=== PATIENT | male | born 1960 | race Caucasian/White ===

== ENCOUNTER → 2016-12-17 | Outpatient (CLI) | payer BC ==
[2016-12-17 10:26] LABS: INR 2.02
== END ==
LOC: M LAB 09:39
PROVIDERS: ATTEND Physician Assistant
DX: I48.2 Chronic atrial fibrillation (principal)

== ENCOUNTER → 2016-12-17 | Outpatient (CLI) | payer BC ==
[2016-12-17 10:43] LABS: ALBUMIN 3.9 GM/DL (3.2-5.2); ALBUMIN/GLOBULIN RATIO 1.15 (1.00-1.93); ALKALINE PHOSPHATASE 97 U/L (45-117); ALT/SGPT 43 U/L (12-78); ANION GAP 9 MEQ/L (8-16); AST/SGOT 22 U/L (15-37); BILIRUBIN,TOTAL 0.8 MG/DL (0.2-1.0); BLOOD UREA NITROGEN 12 MG/DL (7-18); CALCIUM LEVEL 9.7 MG/DL (8.5-10.1); CARBON DIOXIDE LEVEL 27 MEQ/L (21-32); CHLORIDE LEVEL 106 MEQ/L (98-107); CHOLESTEROL LEVEL 116 MG/DL (<200); CREATININE FOR GFR 1.22 MG/DL (0.70-1.30); GLOMERULAR FILTRATION RATE > 60.0 (>56); GLUCOSE, FASTING 108 MG/DL (70-105); MAGNESIUM LEVEL 1.9 MG/DL (1.8-2.4); POTASSIUM SERUM 4.3 MEQ/L (3.5-5.1); SODIUM LEVEL 142 MEQ/L (136-145); TOTAL PROTEIN 7.3 GM/DL (6.4-8.2); TRIGLYCERIDES LEVEL 183 MG/DL (<150); URIC ACID 5.6 MG/DL (3.5-7.2)
== END ==
LOC: M LAB 09:36
PROVIDERS: ATTEND Emergency Medicine
DX: M10.9 Gout, unspecified (principal)

== ENCOUNTER → 2017-02-13 | Outpatient (CLI) | payer BC ==
[2017-02-13 10:24] LABS: MEAN CORPUSCULAR HEMOGLOBIN 29.1 pg (27.0-33.0); MEAN CORPUSCULAR VOLUME 85.8 fl (80.0-96.0); RED CELL DISTRIBUTION WIDTH 13.1 % (11.5-14.5); WHITE BLOOD COUNT 7.1 K/mm3 (4.0-10.0)
[2017-02-13 10:26] LABS: INR 1.31
[2017-02-13 10:37] LABS: ALBUMIN 3.6 GM/DL (3.2-5.2); ALBUMIN/GLOBULIN RATIO 1.09 (1.00-1.93); ALKALINE PHOSPHATASE 108 U/L (45-117); ALT/SGPT 57 U/L (12-78); ANION GAP 7 MEQ/L (8-16); AST/SGOT 31 U/L (15-37); BILIRUBIN,TOTAL 1.4 MG/DL (0.2-1.0); BLOOD UREA NITROGEN 15 MG/DL (7-18); CALCIUM LEVEL 8.7 MG/DL (8.5-10.1); CARBON DIOXIDE LEVEL 26 MEQ/L (21-32); CHLORIDE LEVEL 106 MEQ/L (98-107); CHOLESTEROL LEVEL 88 MG/DL (<200); CREATININE FOR GFR 0.96 MG/DL (0.70-1.30); GLOMERULAR FILTRATION RATE > 60.0 (>56); GLUCOSE, FASTING 114 MG/DL (70-105); MAGNESIUM LEVEL 1.9 MG/DL (1.8-2.4); POTASSIUM SERUM 4.4 MEQ/L (3.5-5.1); SODIUM LEVEL 139 MEQ/L (136-145); TOTAL PROTEIN 6.9 GM/DL (6.4-8.2); TRIGLYCERIDES LEVEL 133 MG/DL (<150)
--- NOTE | 2017-02-13 16:23 | REP ---
Chest two views HISTORY: Shortness of breath Comparison: 03/01/2015 The lungs are clear. The heart is normal in size. The pulmonary vasculature is normal in appearance. The bony structure is intact. IMPRESSION: No acute disease. Signed by Jai Atkins MD 02/13/2017 04:15 P
== END ==
LOC: M LAB 09:45
PROVIDERS: ATTEND Physician Assistant
DX: I48.2 Chronic atrial fibrillation (principal); E78.2 Mixed hyperlipidemia; R06.02 Shortness of breath

== ENCOUNTER → 2017-03-06 | Outpatient (CLI) | payer BC ==
[2017-03-06 18:02] LABS: INR 2.76
== END ==
LOC: M LAB 15:57
PROVIDERS: ATTEND Physician Assistant
DX: I48.2 Chronic atrial fibrillation (principal)

== ENCOUNTER → 2017-04-29 | Outpatient (CLI) | payer BC ==
[2017-04-29 14:56] LABS: INR 2.59
== END ==
LOC: M LAB 13:46
PROVIDERS: ATTEND Nurse Practitioner Family
DX: I48.2 Chronic atrial fibrillation (principal)

== ENCOUNTER → 2017-06-21 | Outpatient (CLI) | payer BC ==
[2017-06-21 22:25] LABS: INR 3.42
== END ==
LOC: M LAB 21:29
PROVIDERS: ATTEND Nurse Practitioner Family
DX: I48.2 Chronic atrial fibrillation (principal)

== ENCOUNTER → 2017-08-13 | Outpatient (CLI) | payer BC ==
[2017-08-13 18:43] LABS: INR 3.24
== END ==
LOC: M LAB 17:44
PROVIDERS: ATTEND Nurse Practitioner Family
DX: I48.2 Chronic atrial fibrillation (principal)

== ENCOUNTER → 2017-09-30 | Outpatient (CLI) | payer BC ==
[2017-09-30 17:34] LABS: INR 2.65
== END ==
LOC: M LAB 16:44
PROVIDERS: ATTEND Nurse Practitioner Family
DX: I48.2 Chronic atrial fibrillation (principal)

== ENCOUNTER → 2017-11-11 | Outpatient (CLI) | payer BC | LOC: M WUC 13:19 | DX: M54.5 Low back pain (principal); M51.37 Other intervertebral disc degeneration, lumbosacral region | CPT/HCPCS: 72110 ==

== ENCOUNTER → 2017-11-11 | Outpatient (REF) | payer BC ==
[2017-11-11 13:57] LABS: APPEARANCE, URINE CLEAR (CLEAR); BACTERIA, URINE AUTO NEGATIVE (NEGATIVE); BILIRUBIN, URINE AUTO NEGATIVE (NEGATIVE); BLOOD, URINE BLOOD NEGATIVE (NEGATIVE); COLOR, URINE COLORLESS (YELLOW); GLUCOSE, URINE (UA) AUTO NEGATIVE (NEGATIVE); KETONE, URINE AUTO NEGATIVE (NEGATIVE); LEUKOCYTE ESTERASE, URINE AUTO NEGATIVE (NEGATIVE); NITRITE, URINE AUTO NEGATIVE (NEGATIVE); PROTEIN, URINE AUTO NEGATIVE (NEGATIVE); RBC, URINE AUTO 0 /HPF (0-3); SPECIFIC GRAVITY URINE AUTO 1.005 (1.002-1.035); SQUAMOUS EPITHELIAL CELL UR AU 0 /HPF (0-6); UROBILINOGEN, URINE AUTO 0.2 mg/dL (0.0-2.0); WBC, URINE AUTO 0 /HPF (0-3)
== END ==
LOC: M SMT 13:13
DX: R35.0 Frequency of micturition (principal)
CPT/HCPCS: 81001

== ENCOUNTER → 2018-01-27 | Outpatient (CLI) | payer BC ==
[2018-01-27 19:19] LABS: INR 2.73; PROTHROMBIN TIME 30.1 SECONDS (12.4-14.5)
== END ==
LOC: M LAB 18:04
DX: I48.2 Chronic atrial fibrillation (principal)
CPT/HCPCS: 36415

== ENCOUNTER 2018-02-20 18:14 | Observation (INO) | payer BC ==
[2018-02-20] MEDS: ONDANSETRON 4MG/2ML VIAL (J2405) IV ×2 (19:00)
[2018-02-20] MEDS: NS 1,000 ML IV ×2 (19:09)
[2018-02-20] MEDS: MORPHINE 2 MG/ML 1ML SYRINGE (J2270) IV ×2 (19:09)
[2018-02-20 19:10] LABS: BASO # 0.1 10^3/uL (0.0-0.2); BASO % 0.7 % (0.0-1.0); EOS # 0.2 10^3/uL (0.0-0.50); EOS % 2.2 % (0.0-3.0); HEMATOCRIT 48.3 % (42.0-52.0); HEMOGLOBIN 16.1 g/dl (13.5-17.5); IMMATURE GRANULOCYTE % 0.9 % (0-3.0); LYMPH # 3.7 10^3/uL (1.5-4.5); LYMPH % 37.8 % (24.0-44.0); MEAN CORPUSCULAR HEMOGLOBIN 28.6 pg (27.0-33.0); MEAN CORPUSCULAR HGB CONC 33.3 g/dl (32.0-36.5); MEAN CORPUSCULAR VOLUME 85.8 fl (80.0-96.0); MONO # 0.9 10^3/uL (0.0-0.8); NEUTROPHILS # 4.8 10^3/uL (1.8-7.7); NEUTROPHILS % 49.4 % (36.0-66.0); PLATELET COUNT, AUTOMATED 211 10^3/uL (150-450); RED BLOOD COUNT 5.63 10^6/uL (4.30-6.10); RED CELL DISTRIBUTION WIDTH 13.5 % (11.5-14.5); WHITE BLOOD COUNT 9.7 10^3/uL (4.0-10.0)
[2018-02-20] MEDS ORDERED: NITROGLYCERIN 0.4 MG SUBL TABLET As Ordered ×2 (19:27)
[2018-02-20 19:32] LABS: ALBUMIN 3.8 GM/DL (3.2-5.2); ALBUMIN/GLOBULIN RATIO 1.03 (1.00-1.93); ALT/SGPT 71 U/L (12-78); ANION GAP 8 MEQ/L (8-16); AST/SGOT 49 U/L (7-37); BILIRUBIN,DIRECT 0.4 MG/DL (0.0-0.2); BILIRUBIN,TOTAL 1.3 MG/DL (0.2-1.0); BLOOD UREA NITROGEN 15 MG/DL (7-18); CALCIUM LEVEL 8.8 MG/DL (8.5-10.1); CARBON DIOXIDE LEVEL 26 MEQ/L (21-32); CHLORIDE LEVEL 105 MEQ/L (98-107); CPK CREATINE PHOSPHOKINASE 47 U/L (39-308); CREATININE FOR GFR 1.04 MG/DL (0.70-1.30); FREE T4 1.23 NG/DL (0.76-1.46); GLOMERULAR FILTRATION RATE > 60.0 (>56); GLUCOSE, FASTING 101 MG/DL (70-100); LIPASE 138 U/L (73-393); POTASSIUM SERUM 3.9 MEQ/L (3.5-5.1); SODIUM LEVEL 139 MEQ/L (136-145); TOTAL PROTEIN 7.5 GM/DL (6.4-8.2); TROPONIN I < 0.02 NG/ML (< 0.10)
[2018-02-20 19:38] LABS: ALKALINE PHOSPHATASE 99 U/L (45-117); CK-MB VALUE MASS < 1.0 NG/ML (<3.6); MB/CK RELATIVE INDEX 2.12 (< OR =4)
[2018-02-20] MEDS: NITROGLYCERIN 0.4 MG SUBL TABLET SL ×2 (19:39)
[2018-02-20 19:44] LABS: INR 2.54; PROTHROMBIN TIME 28.3 SECONDS (12.4-14.5)
[2018-02-20 19:45] LABS: PARTIAL THROMBOPLASTIN TIME 56.1 SECONDS (26.8-37.9)
[2018-02-20] MEDS ORDERED: ISOVUE-370 76% 100ML VIAL (Q9967) As Ordered ×2 (19:50)
[2018-02-20 20:07] LABS: D-DIMER QUANT < 270.0 ng/ml (<500)
[2018-02-20] MEDS: NITROGLYCERIN 2% OINT 1 GM *U/D* PKT TOP ×2 (20:14)
[2018-02-20] MEDS: ACETAMINOPHEN TAB 650MG DOSE (2X325MG) PO ×2 (20:14)
[2018-02-21 00:26] LABS: CK-MB VALUE MASS < 1.0 NG/ML (<3.6); CPK CREATINE PHOSPHOKINASE 41 U/L (39-308); MB/CK RELATIVE INDEX 2.43 (< OR =4); TROPONIN I < 0.02 NG/ML (< 0.10)
[2018-02-21] MEDS ORDERED: ACETAMINOPHEN TAB 650MG DOSE (2X325MG) PO ×2 (02:15)
[2018-02-21] MEDS: ATORVASTATIN 10 MG TAB PO ×4 (03:22→20:55)
[2018-02-21] MEDS: ALLOPURINOL 100 MG TAB PO ×4 (03:22→20:55)
[2018-02-21 07:15] LABS: BASO % 0.5 % (0.0-1.0); EOS # 0.2 10^3/uL (0.0-0.50); EOS % 1.9 % (0.0-3.0); HEMATOCRIT 45.2 % (42.0-52.0); HEMOGLOBIN 15.2 g/dl (13.5-17.5); IMMATURE GRANULOCYTE % 0.8 % (0-3.0); LYMPH # 2.7 10^3/uL (1.5-4.5); LYMPH % 34.7 % (24.0-44.0); MEAN CORPUSCULAR HEMOGLOBIN 28.8 pg (27.0-33.0); MEAN CORPUSCULAR HGB CONC 33.6 g/dl (32.0-36.5); MEAN CORPUSCULAR VOLUME 85.8 fl (80.0-96.0); MONO # 0.7 10^3/uL (0.0-0.8); MONO % 8.8 % (0.0-5.0); NEUTROPHILS # 4.2 10^3/uL (1.8-7.7); NEUTROPHILS % 53.3 % (36.0-66.0); PLATELET COUNT, AUTOMATED 168 10^3/uL (150-450); RED BLOOD COUNT 5.27 10^6/uL (4.30-6.10); RED CELL DISTRIBUTION WIDTH 13.5 % (11.5-14.5); WHITE BLOOD COUNT 7.8 10^3/uL (4.0-10.0)
[2018-02-21 07:25] LABS: ANION GAP 6 MEQ/L (8-16); BLOOD UREA NITROGEN 13 MG/DL (7-18); CALCIUM LEVEL 8.5 MG/DL (8.5-10.1); CARBON DIOXIDE LEVEL 26 MEQ/L (21-32); CHLORIDE LEVEL 108 MEQ/L (98-107); CREATININE FOR GFR 0.95 MG/DL (0.70-1.30); GLOMERULAR FILTRATION RATE > 60.0 (>56); GLUCOSE, FASTING 108 MG/DL (70-100); POTASSIUM SERUM 4.1 MEQ/L (3.5-5.1); SODIUM LEVEL 140 MEQ/L (136-145)
[2018-02-21 07:29] LABS: TROPONIN I < 0.02 NG/ML (< 0.10)
[2018-02-21 07:30] LABS: INR 2.62; PROTHROMBIN TIME 29.1 SECONDS (12.4-14.5)
[2018-02-21] MEDS: NITROGLYCERIN 0.4 MG SUBL TABLET SL ×2 (08:22)
[2018-02-21] MEDS: PANTOPRAZOLE 40MG INJ (PROTONIX) (C9113) IV ×2 (08:24)
[2018-02-21] MEDS: ONDANSETRON 4MG/2ML VIAL (J2405) IV ×2 (08:24)
[2018-02-21] MEDS: WARFARIN SOD 5 MG TAB PO ×2 (08:25)
[2018-02-21] MEDS: ACETAMINOPHEN 500 MG TAB PO ×2 (08:25)
[2018-02-21] MEDS: WARFARIN SOD 1 MG TAB PO ×2 (08:25)
[2018-02-21] MEDS: CYANOCOBALAMIN 500 MCG TAB PO ×2 (08:25)
[2018-02-21] MEDS: oxyBUTYnin *DITROPAN XL* 5 MG TABCR PO ×2 (08:26)
[2018-02-21] MEDS ORDERED: PANTOPRAZOLE 40MG TAB (PROTONIX) PO ×2 (09:00)
[2018-02-21] MEDS ORDERED: FUROSEMIDE 20 MG TAB PO ×2 (09:00)
[2018-02-21] MEDS ORDERED: VITAMIN D 1,000 INTERNATIONAL UNITS TABLET PO ×2 (09:00)
[2018-02-21] MEDS ORDERED: QUINAPRIL 20 MG TAB PO ×2 (09:00)
[2018-02-21 12:05] LABS: DIGOXIN LEVEL 1.2 NG/ML (0.5-2.0)
[2018-02-22] MEDS: CALCIUM CARBONATE 500 MG CHEW U/D PO ×2 (00:05)
[2018-02-22 03:39] LABS: BASO % 0.5 % (0.0-1.0); EOS # 0.2 10^3/uL (0.0-0.50); HEMATOCRIT 43.9 % (42.0-52.0); HEMOGLOBIN 14.5 g/dl (13.5-17.5); IMMATURE GRANULOCYTE % 0.9 % (0-3.0); LYMPH % 36.9 % (24.0-44.0); MEAN CORPUSCULAR HEMOGLOBIN 28.5 pg (27.0-33.0); MEAN CORPUSCULAR VOLUME 86.4 fl (80.0-96.0); MONO # 0.7 10^3/uL (0.0-0.8); MONO % 8.3 % (0.0-5.0); NEUTROPHILS # 4.2 10^3/uL (1.8-7.7); NEUTROPHILS % 51.4 % (36.0-66.0); PLATELET COUNT, AUTOMATED 176 10^3/uL (150-450); RED BLOOD COUNT 5.08 10^6/uL (4.30-6.10); RED CELL DISTRIBUTION WIDTH 13.4 % (11.5-14.5); WHITE BLOOD COUNT 8.1 10^3/uL (4.0-10.0)
[2018-02-22 03:54] LABS: INR 2.75; PROTHROMBIN TIME 30.3 SECONDS (12.4-14.5)
[2018-02-22 04:14] LABS: ANION GAP 5 MEQ/L (8-16); BLOOD UREA NITROGEN 13 MG/DL (7-18); CALCIUM LEVEL 8.5 MG/DL (8.5-10.1); CARBON DIOXIDE LEVEL 28 MEQ/L (21-32); CHLORIDE LEVEL 107 MEQ/L (98-107); CREATININE FOR GFR 0.96 MG/DL (0.70-1.30); GLOMERULAR FILTRATION RATE > 60.0 (>56); GLUCOSE, FASTING 109 MG/DL (70-100); POTASSIUM SERUM 3.9 MEQ/L (3.5-5.1); SODIUM LEVEL 140 MEQ/L (136-145)
[2018-02-22] MEDS: PANTOPRAZOLE 40MG INJ (PROTONIX) (C9113) IV ×2 (08:58)
[2018-02-22] MEDS: oxyBUTYnin *DITROPAN XL* 5 MG TABCR PO ×2 (08:59)
[2018-02-22] MEDS: WARFARIN SOD 5 MG TAB PO ×2 (08:59)
[2018-02-22] MEDS: CYANOCOBALAMIN 500 MCG TAB PO ×2 (08:59)
[2018-02-22] MEDS: WARFARIN SOD 1 MG TAB PO ×2 (08:59)
[2018-02-22] MEDS: NADOLOL 20MG TABLET PO ×4 (10:31→19:42)
[2018-02-22] MEDS: ALLOPURINOL 100 MG TAB PO ×2 (20:37)
[2018-02-22] MEDS: ATORVASTATIN 10 MG TAB PO ×2 (20:37)
[2018-02-23 05:13] LABS: BASO # 0.1 10^3/uL (0.0-0.2); BASO % 0.6 % (0.0-1.0); EOS # 0.2 10^3/uL (0.0-0.50); HEMOGLOBIN 14.8 g/dl (13.5-17.5); IMMATURE GRANULOCYTE % 0.6 % (0-3.0); LYMPH # 3.2 10^3/uL (1.5-4.5); LYMPH % 39.2 % (24.0-44.0); MEAN CORPUSCULAR HEMOGLOBIN 28.5 pg (27.0-33.0); MEAN CORPUSCULAR HGB CONC 32.9 g/dl (32.0-36.5); MEAN CORPUSCULAR VOLUME 86.5 fl (80.0-96.0); MONO # 0.7 10^3/uL (0.0-0.8); NEUTROPHILS % 48.6 % (36.0-66.0); PLATELET COUNT, AUTOMATED 173 10^3/uL (150-450); RED CELL DISTRIBUTION WIDTH 13.4 % (11.5-14.5); WHITE BLOOD COUNT 8.2 10^3/uL (4.0-10.0)
[2018-02-23 05:28] LABS: INR 2.54; PROTHROMBIN TIME 28.4 SECONDS (12.4-14.5)
[2018-02-23 05:32] LABS: ANION GAP 5 MEQ/L (8-16); BLOOD UREA NITROGEN 11 MG/DL (7-18); CALCIUM LEVEL 8.6 MG/DL (8.5-10.1); CARBON DIOXIDE LEVEL 26 MEQ/L (21-32); CHLORIDE LEVEL 109 MEQ/L (98-107); CREATININE FOR GFR 0.93 MG/DL (0.70-1.30); GLOMERULAR FILTRATION RATE > 60.0 (>56); GLUCOSE, FASTING 107 MG/DL (70-100); SODIUM LEVEL 140 MEQ/L (136-145)
[2018-02-23] MEDS: PANTOPRAZOLE 40MG INJ (PROTONIX) (C9113) IV ×2 (08:20)
[2018-02-23] MEDS: NADOLOL 20MG TABLET PO ×6 (08:21→10:22)
[2018-02-23] MEDS: CYANOCOBALAMIN 500 MCG TAB PO ×2 (08:21)
[2018-02-23] MEDS: WARFARIN SOD 1 MG TAB PO ×2 (08:21)
[2018-02-23] MEDS: WARFARIN SOD 5 MG TAB PO ×2 (08:21)
[2018-02-23] MEDS: oxyBUTYnin *DITROPAN XL* 5 MG TABCR PO ×2 (08:21)
[2018-02-23] MEDS: DIGOXIN 0.125 MG TAB PO ×2 (16:00)
[2018-02-23] MEDS: ATORVASTATIN 10 MG TAB PO ×2 (20:44)
[2018-02-23] MEDS: ALLOPURINOL 100 MG TAB PO ×2 (20:44)
[2018-02-24 05:49] LABS: BASO % 0.5 % (0.0-1.0); EOS # 0.2 10^3/uL (0.0-0.50); EOS % 2.2 % (0.0-3.0); HEMATOCRIT 45.5 % (42.0-52.0); HEMOGLOBIN 15.2 g/dl (13.5-17.5); IMMATURE GRANULOCYTE % 0.8 % (0-3.0); LYMPH # 2.8 10^3/uL (1.5-4.5); LYMPH % 32.9 % (24.0-44.0); MEAN CORPUSCULAR HEMOGLOBIN 28.7 pg (27.0-33.0); MEAN CORPUSCULAR HGB CONC 33.4 g/dl (32.0-36.5); MONO # 0.7 10^3/uL (0.0-0.8); NEUTROPHILS # 4.8 10^3/uL (1.8-7.7); NEUTROPHILS % 55.6 % (36.0-66.0); PLATELET COUNT, AUTOMATED 184 10^3/uL (150-450); RED BLOOD COUNT 5.29 10^6/uL (4.30-6.10); RED CELL DISTRIBUTION WIDTH 13.7 % (11.5-14.5); WHITE BLOOD COUNT 8.6 10^3/uL (4.0-10.0)
[2018-02-24 06:11] LABS: ANION GAP 6 MEQ/L (8-16); BLOOD UREA NITROGEN 10 MG/DL (7-18); CALCIUM LEVEL 8.6 MG/DL (8.5-10.1); CARBON DIOXIDE LEVEL 25 MEQ/L (21-32); CHLORIDE LEVEL 111 MEQ/L (98-107); CREATININE FOR GFR 0.93 MG/DL (0.70-1.30); GLOMERULAR FILTRATION RATE > 60.0 (>56); GLUCOSE, FASTING 100 MG/DL (70-100); POTASSIUM SERUM 3.8 MEQ/L (3.5-5.1); SODIUM LEVEL 142 MEQ/L (136-145)
[2018-02-24] MEDS: CYANOCOBALAMIN 500 MCG TAB PO ×2 (09:01)
[2018-02-24] MEDS: oxyBUTYnin *DITROPAN XL* 5 MG TABCR PO ×2 (09:01)
[2018-02-24] MEDS: NADOLOL 20MG TABLET PO ×2 (09:01)
[2018-02-24] MEDS: PANTOPRAZOLE 40MG INJ (PROTONIX) (C9113) IV ×2 (09:01)
[2018-02-24] MEDS: WARFARIN SOD 5 MG TAB PO ×2 (09:01)
[2018-02-24] MEDS: WARFARIN SOD 1 MG TAB PO ×2 (09:02)
[2018-02-24] MEDS: BISOPROLOL FUMARATE 10 MG TAB PO ×2 (15:27)
== END 2018-02-24 20:49 | disposition home or self-care (01) ==
LOC: M ED INP 02-21 02:07 → M PCU 02-21 05:36 → M ED 18:14 → M ED INP 18:15 → M PCU 02-21 05:36
DX: R00.1 Bradycardia, unspecified (principal); I48.2 Chronic atrial fibrillation; I50.32 Chronic diastolic (congestive) heart failure; M10.9 Gout, unspecified; K21.9 Gastro-esophageal reflux disease without esophagitis; I11.0 Hypertensive heart disease with heart failure; R42 Dizziness and giddiness; R94.31 Abnormal electrocardiogram [ECG] [EKG]; E78.5 Hyperlipidemia, unspecified; E66.9 Obesity, unspecified; I34.0 Nonrheumatic mitral (valve) insufficiency; E55.9 Vitamin D deficiency, unspecified; M50.20 Other cervical disc displacement, unspecified cervical region; M19.90 Unspecified osteoarthritis, unspecified site; Z79.899 Other long term (current) drug therapy; Z79.01 Long term (current) use of anticoagulants; Z88.1 Allergy status to other antibiotic agents; Z88.0 Allergy status to penicillin; Z88.2 Allergy status to sulfonamides; Z91.030 Bee allergy status
CPT/HCPCS: C9113

== ENCOUNTER → 2018-03-27 | Outpatient (CLI) | payer BC ==
[2018-03-27 11:21] LABS: HEMATOCRIT 47.3 % (42.0-52.0); HEMOGLOBIN 15.7 g/dl (13.5-17.5); MEAN CORPUSCULAR HEMOGLOBIN 28.6 pg (27.0-33.0); MEAN CORPUSCULAR HGB CONC 33.2 g/dl (32.0-36.5); MEAN CORPUSCULAR VOLUME 86.3 fl (80.0-96.0); PLATELET COUNT, AUTOMATED 215 10^3/uL (150-450); RED BLOOD COUNT 5.48 10^6/uL (4.30-6.10); RED CELL DISTRIBUTION WIDTH 13.8 % (11.5-14.5); WHITE BLOOD COUNT 8.3 10^3/uL (4.0-10.0)
[2018-03-27 11:37] LABS: INR 2.44; PROTHROMBIN TIME 27.5 SECONDS (12.4-14.5)
== END ==
LOC: M LAB 10:07
DX: Z51.81 Encounter for therapeutic drug level monitoring (principal); Z79.01 Long term (current) use of anticoagulants; I48.2 Chronic atrial fibrillation
CPT/HCPCS: 85610

== ENCOUNTER → 2018-04-28 | Outpatient (CLI) | payer BC ==
[2018-04-28 15:20] LABS: HEMATOCRIT 48.3 % (42.0-52.0); HEMOGLOBIN 16.2 g/dl (13.5-17.5); MEAN CORPUSCULAR HEMOGLOBIN 28.4 pg (27.0-33.0); MEAN CORPUSCULAR HGB CONC 33.5 g/dl (32.0-36.5); MEAN CORPUSCULAR VOLUME 84.7 fl (80.0-96.0); PLATELET COUNT, AUTOMATED 219 10^3/uL (150-450); RED CELL DISTRIBUTION WIDTH 13.7 % (11.5-14.5); WHITE BLOOD COUNT 8.8 10^3/uL (4.0-10.0)
[2018-04-28 15:30] LABS: INR 2.53; PROTHROMBIN TIME 27.8 SECONDS (12.1-14.4)
== END ==
LOC: M LAB 14:42
DX: I48.2 Chronic atrial fibrillation (principal)
CPT/HCPCS: 85610

== ENCOUNTER → 2018-05-28 | Outpatient (CLI) | payer BC ==
[2018-05-28 15:31] LABS: HEMATOCRIT 48.1 % (42.0-52.0); HEMOGLOBIN 15.9 g/dl (13.5-17.5); MEAN CORPUSCULAR HEMOGLOBIN 27.9 pg (27.0-33.0); MEAN CORPUSCULAR HGB CONC 33.1 g/dl (32.0-36.5); MEAN CORPUSCULAR VOLUME 84.5 fl (80.0-96.0); PLATELET COUNT, AUTOMATED 211 10^3/uL (150-450); RED BLOOD COUNT 5.69 10^6/uL (4.30-6.10); RED CELL DISTRIBUTION WIDTH 13.5 % (11.5-14.5); WHITE BLOOD COUNT 7.8 10^3/uL (4.0-10.0)
[2018-05-28 15:44] LABS: INR 2.38; PROTHROMBIN TIME 26.5 SECONDS (12.1-14.4)
== END ==
LOC: M LAB 15:11
DX: Z51.81 Encounter for therapeutic drug level monitoring (principal); Z79.01 Long term (current) use of anticoagulants; I48.2 Chronic atrial fibrillation
CPT/HCPCS: 85610

== ENCOUNTER → 2018-07-17 | Outpatient (CLI) | payer BC ==
[2018-07-17 10:02] LABS: HEMATOCRIT 48.1 % (42.0-52.0); HEMOGLOBIN 15.5 g/dl (13.5-17.5); MEAN CORPUSCULAR HEMOGLOBIN 27.9 pg (27.0-33.0); MEAN CORPUSCULAR HGB CONC 32.2 g/dl (32.0-36.5); MEAN CORPUSCULAR VOLUME 86.7 fl (80.0-96.0); PLATELET COUNT, AUTOMATED 197 10^3/uL (150-450); RED BLOOD COUNT 5.55 10^6/uL (4.30-6.10); RED CELL DISTRIBUTION WIDTH 14.2 % (11.5-14.5); WHITE BLOOD COUNT 7.8 10^3/uL (4.0-10.0)
[2018-07-17 10:14] LABS: INR 2.54; PROTHROMBIN TIME 27.9 SECONDS (12.1-14.4)
== END ==
LOC: M LAB 09:20
DX: Z79.01 Long term (current) use of anticoagulants (principal); I48.2 Chronic atrial fibrillation
CPT/HCPCS: 85610

== ENCOUNTER 2018-09-09 17:35 | Emergency (ER) | payer BC ==
[2018-09-09 19:18] LABS: KETONE, URINE AUTO RFX NEGATIVE (NEGATIVE); LEUKOCYTE ESTERASE UR AUTO RFX NEGATIVE (NEGATIVE); MUCUS, URINE RFX SMALL (NEGATIVE); NITRITE, URINE AUTO RFX NEGATIVE (NEGATIVE); RBC, URINE AUTO RFX 0 /HPF (0-3); SPECIFIC GRAVITY UR AUTO RFX 1.006 (1.002-1.035); SQUAM EPITHELIAL CELL UR AURFX 0 /HPF (0-6); WBC, URINE AUTO RFX 1 /HPF (0-3)
[2018-09-09] MEDS: NS 1,000 ML IV (20:53)
[2018-09-09] MEDS: ONDANSETRON 4MG/2ML VIAL (J2405) IV (20:53)
[2018-09-09 21:00] LABS: BASO # 0.1 10^3/uL (0.0-0.2); BASO % 0.8 % (0.0-1.0); EOS # 0.1 10^3/uL (0.0-0.50); EOS % 1.1 % (0.0-3.0); HEMATOCRIT 49.1 % (42.0-52.0); HEMOGLOBIN 16.1 g/dl (13.5-17.5); IMMATURE GRANULOCYTE % 1.9 % (0-3.0); LYMPH # 2.4 10^3/uL (1.5-4.5); LYMPH % 37.3 % (24.0-44.0); MEAN CORPUSCULAR HEMOGLOBIN 28.3 pg (27.0-33.0); MEAN CORPUSCULAR HGB CONC 32.8 g/dl (32.0-36.5); MEAN CORPUSCULAR VOLUME 86.3 fl (80.0-96.0); MONO # 1.2 10^3/uL (0.0-0.8); NEUTROPHILS # 2.6 10^3/uL (1.8-7.7); NEUTROPHILS % 39.9 % (36.0-66.0); PLATELET COUNT, AUTOMATED 195 10^3/uL (150-450); RED BLOOD COUNT 5.69 10^6/uL (4.30-6.10); RED CELL DISTRIBUTION WIDTH 14.4 % (11.5-14.5); WHITE BLOOD COUNT 6.4 10^3/uL (4.0-10.0)
[2018-09-09 21:25] LABS: ALBUMIN 3.6 GM/DL (3.2-5.2); ALBUMIN/GLOBULIN RATIO 1.06 (1.00-1.93); ALKALINE PHOSPHATASE 112 U/L (45-117); ALT/SGPT 72 U/L (12-78); ANION GAP 7 MEQ/L (8-16); AST/SGOT 54 U/L (7-37); BLOOD UREA NITROGEN 11 MG/DL (7-18); CALCIUM LEVEL 8.6 MG/DL (8.8-10.2); CARBON DIOXIDE LEVEL 27 MEQ/L (21-32); CHLORIDE LEVEL 103 MEQ/L (98-107); CREATININE FOR GFR 1.21 MG/DL (0.70-1.30); GLOMERULAR FILTRATION RATE > 60.0 (>49); GLUCOSE, FASTING 82 MG/DL (70-100); LIPASE 87 U/L (73-393); POTASSIUM SERUM 4.1 MEQ/L (3.5-5.1); SODIUM LEVEL 137 MEQ/L (136-145)
[2018-09-09] MEDS ORDERED: ISOVUE-370 76% 100ML VIAL (Q9967) As Ordered (21:47)
== END 2018-09-09 23:58 | disposition home or self-care (01) ==
LOC: M ED 17:35
DX: R10.32 Left lower quadrant pain (principal); R19.7 Diarrhea, unspecified; M54.6 Pain in thoracic spine; R51 Headache; I48.91 Unspecified atrial fibrillation; I50.9 Heart failure, unspecified; I25.2 Old myocardial infarction; E78.5 Hyperlipidemia, unspecified; K21.9 Gastro-esophageal reflux disease without esophagitis; G62.9 Polyneuropathy, unspecified; R79.89 Other specified abnormal findings of blood chemistry; Z88.0 Allergy status to penicillin; Z88.2 Allergy status to sulfonamides; Z88.1 Allergy status to other antibiotic agents; Z91.040 Latex allergy status; Z91.030 Bee allergy status; Z79.899 Other long term (current) drug therapy; Z79.01 Long term (current) use of anticoagulants
CPT/HCPCS: J2405

== ENCOUNTER → 2018-09-09 | Outpatient (CLI) | payer BC ==
[2018-09-09 17:39] LABS: HEMATOCRIT 50.6 % (42.0-52.0); HEMOGLOBIN 16.6 g/dl (13.5-17.5); MEAN CORPUSCULAR HEMOGLOBIN 28.4 pg (27.0-33.0); MEAN CORPUSCULAR HGB CONC 32.8 g/dl (32.0-36.5); MEAN CORPUSCULAR VOLUME 86.5 fl (80.0-96.0); PLATELET COUNT, AUTOMATED 207 10^3/uL (150-450); RED BLOOD COUNT 5.85 10^6/uL (4.30-6.10); RED CELL DISTRIBUTION WIDTH 14.3 % (11.5-14.5); WHITE BLOOD COUNT 7.2 10^3/uL (4.0-10.0)
[2018-09-09 18:09] LABS: INR 2.23; PROTHROMBIN TIME 25.2 SECONDS (12.1-14.4)
== END ==
LOC: M LAB 17:06
DX: I48.2 Chronic atrial fibrillation (principal)
CPT/HCPCS: 85610

== ENCOUNTER → 2018-10-22 | Outpatient (CLI) | payer BC ==
[~2018-10-22] MED LIST: ALLO100T; ALLO100T PO; ATOR1TAB19; ATOR1TAB19 PO; BISO10TA PO; COLC1TAB13; DICY1CAP8 PO; DIGO0.12; DIGO0.12 PO; FISH1000 PO; FURO20TA2; FURO20TA2 PO; GLUCTAB6 PO; NADO80TA; NADO80TA PO; OXYB5TAB; OXYB5TAB PO; PANT40TA3; PANT40TA3 PO; QUIN1TAB4; QUIN1TAB4 PO; VITA200016 PO; VITA500T3 PO; WARF-23 PO; WARF4TAB52; WARF4TAB52 PO
[2018-10-22 15:10] LABS: INR 2.39; PROTHROMBIN TIME 26.5 SECONDS (12.1-14.4)
== END ==
LOC: M LAB 14:14
PROVIDERS: ATTEND Physician Assistant
DX: I48.2 Chronic atrial fibrillation (principal)

== ENCOUNTER → 2019-01-22 | Outpatient (CLI) | payer BC ==
[2019-01-22 18:15] LABS: INR 2.3; PROTHROMBIN TIME 25.8 SECONDS (12.1-14.4)
== END ==
LOC: M LAB 17:15
PROVIDERS: ATTEND Physician Assistant
DX: I48.2 Chronic atrial fibrillation (principal)

== ENCOUNTER → 2019-03-04 | Outpatient (CLI) | payer BC ==
[~2019-03-04] MED LIST changes: -BISO10TA PO; +BISO10TA13 PO
[2019-03-04 18:54] LABS: INR 2.25; PROTHROMBIN TIME 25.3 SECONDS (12.1-14.4)
== END ==
LOC: M LAB 17:11
PROVIDERS: ATTEND Physician Assistant
DX: I48.2 Chronic atrial fibrillation (principal)

== ENCOUNTER → 2019-06-04 | Outpatient (CLI) | payer BC ==
[~2019-06-04] MED LIST changes: +CYAN500T8 PO; -OXYB5TAB; -OXYB5TAB PO; +OXYB5TAB2; +OXYB5TAB2 PO; -VITA500T3 PO
[2019-06-04 17:11] LABS: INR 2.62; PROTHROMBIN TIME 27.9 SECONDS (11.8-14.0)
[2019-06-04 17:20] LABS: ALBUMIN 3.7 GM/DL (3.2-5.2); BLOOD UREA NITROGEN 17 MG/DL (7-18); CALCIUM LEVEL 8.7 MG/DL (8.8-10.2); CARBON DIOXIDE LEVEL 26 MEQ/L (21-32); CHLORIDE LEVEL 109 MEQ/L (98-107); CREATININE FOR GFR 1.21 MG/DL (0.70-1.30); GLOMERULAR FILTRATION RATE > 60.0 (>49); GLUCOSE, FASTING 106 MG/DL (70-100); PHOSPHORUS LEVEL 2.7 MG/DL (2.5-4.9); POTASSIUM SERUM 4.1 MEQ/L (3.5-5.1); SODIUM LEVEL 142 MEQ/L (136-145)
== END ==
LOC: M LAB 15:56
PROVIDERS: ATTEND Physician Assistant
DX: I48.2 Chronic atrial fibrillation (principal); R60.0 Localized edema

== ENCOUNTER → 2019-06-30 | Outpatient (CLI) | payer BC ==
[2019-06-30 18:29] LABS: INR 1.52; PROTHROMBIN TIME 18.1 SECONDS (11.8-14.0)
== END ==
LOC: M LAB 17:36
PROVIDERS: ATTEND Physician Assistant
DX: I48.2 Chronic atrial fibrillation (principal)

== ENCOUNTER → 2019-09-14 | Outpatient (CLI) | payer BC ==
[2019-09-14 18:45] LABS: BASO # 0.1 10^3/uL (0.0-0.2); BASO % 0.7 % (0.0-1.0); EOS # 0.1 10^3/uL (0.0-0.5); EOS % 1.4 % (0.0-3.0); HEMATOCRIT 49.6 % (42.0-52.0); LYMPH # 2.6 10^3/uL (1.5-5.0); LYMPH % 28.8 % (24.0-44.0); MEAN CORPUSCULAR HGB CONC 32.3 g/dl (32.0-36.5); MEAN CORPUSCULAR VOLUME 89.9 fl (80.0-96.0); MONO # 0.7 10^3/uL (0.0-0.8); NEUTROPHILS # 5.4 10^3/uL (1.5-8.5); NEUTROPHILS % 60.2 % (36.0-66.0); PLATELET COUNT, AUTOMATED 220 10^3/uL (150-450); RED BLOOD COUNT 5.52 10^6/uL (4.30-6.10)
[2019-09-14 19:24] LABS: ALBUMIN 3.9 GM/DL (3.2-5.2); ALT/SGPT 58 U/L (12-78); BILIRUBIN,TOTAL 1.5 MG/DL (0.2-1.0); BLOOD UREA NITROGEN 12 MG/DL (7-18); CALCIUM LEVEL 9.2 MG/DL (8.8-10.2); CARBON DIOXIDE LEVEL 28 MEQ/L (21-32); CHLORIDE LEVEL 106 MEQ/L (98-107); CHOLESTEROL LEVEL 141 MG/DL (<200); CREATININE FOR GFR 0.98 MG/DL (0.70-1.30); DIGOXIN LEVEL 0.6 NG/ML (0.5-2.0); GLOMERULAR FILTRATION RATE > 60.0 (>49); GLUCOSE, FASTING 74 MG/DL (70-100); HDL CHOLESTEROL 37 MG/DL (>40); LDL CHOLESTEROL 79 MG/DL (<100); NON-HDL-C 104 MG/DL; POTASSIUM SERUM 4.1 MEQ/L (3.5-5.1); SODIUM LEVEL 140 MEQ/L (136-145); TOTAL PROTEIN 7.3 GM/DL (6.4-8.2); TRIGLYCERIDES LEVEL 125 MG/DL (<150)
== END ==
LOC: M LAB 17:55
PROVIDERS: ATTEND Family Medicine
DX: I42.0 Dilated cardiomyopathy (principal); I10 Essential (primary) hypertension; E78.2 Mixed hyperlipidemia

== ENCOUNTER → 2020-07-01 | Outpatient (CLI) | payer BC ==
[~2020-07-01] MED LIST changes: -DIGO0.12; -DIGO0.12 PO; +DIGO0.123; +DIGO0.123 PO; -NADO80TA; -NADO80TA PO; +NADO80TA5; +NADO80TA5 PO; +OXYB-54; +OXYB-54 PO; -OXYB5TAB2; -OXYB5TAB2 PO; +PANT40TA29; +PANT40TA29 PO; -PANT40TA3; -PANT40TA3 PO
[2020-07-01 18:20] LABS: ALBUMIN 3.6 GM/DL (3.2-5.2); ALT/SGPT 33 U/L (12-78); BILIRUBIN,TOTAL 0.7 MG/DL (0.2-1.0); BLOOD UREA NITROGEN 12 MG/DL (7-18); CARBON DIOXIDE LEVEL 29 MEQ/L (21-32); CHLORIDE LEVEL 105 MEQ/L (98-107); CHOLESTEROL LEVEL 139 MG/DL (<200); CHOLESTEROL RISK RATIO 4.212 (<5); CREATININE FOR GFR 1.09 MG/DL (0.70-1.30); GLOMERULAR FILTRATION RATE > 60.0 (>49); GLUCOSE, FASTING 84 MG/DL (70-100); HDL CHOLESTEROL 33 MG/DL (>40); LDL CHOLESTEROL 59 MG/DL (<100); NON-HDL-C 106 MG/DL; POTASSIUM SERUM 4.1 MEQ/L (3.5-5.1); SODIUM LEVEL 140 MEQ/L (136-145); TRIGLYCERIDES LEVEL 235 MG/DL (<150)
== END ==
LOC: M LAB 16:59
PROVIDERS: ATTEND Nurse Practitioner Family
DX: Z00.00 Encounter for general adult medical examination without abnormal findings (principal)

== ENCOUNTER → 2021-11-09 | Outpatient (CLI) | payer OTHER ==
[~2021-11-09] MED LIST changes: +COLC0.6T47; -COLC1TAB13; +CYAN500T14 PO; -CYAN500T8 PO
[2021-11-09 19:24] LABS: ALBUMIN 3.9 GM/DL (3.2-5.2); ALT/SGPT 31 U/L (12-78); BILIRUBIN,TOTAL 0.4 MG/DL (0.2-1.0); BLOOD UREA NITROGEN 16 MG/DL (7-18); CALCIUM LEVEL 9.8 MG/DL (8.8-10.2); CARBON DIOXIDE LEVEL 29 MEQ/L (21-32); CHLORIDE LEVEL 106 MEQ/L (98-107); CHOLESTEROL LEVEL 155 MG/DL (<200); CHOLESTEROL RISK RATIO 3.522 (<5); CREATININE FOR GFR 1.09 MG/DL (0.70-1.30); GLOMERULAR FILTRATION RATE > 60.0 (>49); GLUCOSE, FASTING 120 MG/DL (70-100); HDL CHOLESTEROL 44 MG/DL (>40); LDL CHOLESTEROL 84 MG/DL (<100); NON-HDL-C 111 MG/DL; POTASSIUM SERUM 4.7 MEQ/L (3.5-5.1); SODIUM LEVEL 142 MEQ/L (136-145); TOTAL PROTEIN 7.6 GM/DL (6.4-8.2); TRIGLYCERIDES LEVEL 133 MG/DL (<150); URIC ACID 5.1 MG/DL (3.5-7.2)
== END ==
LOC: M LAB 18:36
PROVIDERS: ATTEND Family Medicine
DX: I48.20 Chronic atrial fibrillation, unspecified (principal)

== ENCOUNTER → 2021-11-10 | Outpatient (CLI) | payer OTHER | LOC: M RAD 17:50 | PROVIDERS: ATTEND Nurse Practitioner Family | DX: J18.9 Pneumonia, unspecified organism (principal) ==

== ENCOUNTER → 2022-01-30 | Outpatient (CLI) | payer OTHER ==
[2022-01-30 19:10] LABS: HEMOGLOBIN A1c 5.7 %
== END ==
LOC: M LAB 18:19
PROVIDERS: ATTEND Family Medicine
DX: R73.9 Hyperglycemia, unspecified (principal)

== ENCOUNTER → 2022-01-30 | Outpatient (CLI) | payer OTHER ==
[2022-01-30 19:19] LABS: BLOOD UREA NITROGEN 13 MG/DL (7-18); CALCIUM LEVEL 9.5 MG/DL (8.8-10.2); CARBON DIOXIDE LEVEL 32 MEQ/L (21-32); CHLORIDE LEVEL 105 MEQ/L (98-107); CREATININE FOR GFR 1.02 MG/DL (0.70-1.30); GLOMERULAR FILTRATION RATE > 60.0 (>49); GLUCOSE, FASTING 88 MG/DL (70-100); NT-PRO BNP 343 PG/ML (<125); POTASSIUM SERUM 4.9 MEQ/L (3.5-5.1); SODIUM LEVEL 140 MEQ/L (136-145)
== END ==
LOC: M LAB 18:13
PROVIDERS: ATTEND Physician Assistant
DX: I42.9 Cardiomyopathy, unspecified (principal)

== ENCOUNTER → 2022-02-21 | Outpatient (CLI) | payer OTHER ==
[2022-02-22 23:12] LABS: PSA TOTAL 1.1 ng/mL (0.0-4.0)
== END ==
LOC: M LAB 09:57
PROVIDERS: ATTEND Nurse Practitioner Family
DX: R30.0 Dysuria (principal)

== ENCOUNTER → 2022-02-27 | Outpatient (CLI) | payer OTHER | LOC: M PLAIMG 08:10 | PROVIDERS: ATTEND Nurse Practitioner Family | DX: R05.1 Acute cough (principal) ==

== ENCOUNTER → 2022-05-07 | Outpatient (CLI) | payer OTHER ==
[~2022-05-07] MED LIST changes: -GLUCTAB6 PO; +GLUCTAB7 PO
== END ==
LOC: M LAB 17:28
PROVIDERS: ATTEND Nurse Practitioner Family
DX: R53.83 Other fatigue (principal)

== ENCOUNTER → 2022-06-25 | Outpatient (CLI) | payer OTHER | LOC: M CARPUL 09:37 | PROVIDERS: ATTEND Physician Assistant | DX: I42.9 Cardiomyopathy, unspecified (principal); I08.0 Rheumatic disorders of both mitral and aortic valves ==

== ENCOUNTER → 2022-11-20 | Outpatient (CLI) | payer OTHER ==
[2022-11-20 17:54] LABS: HEMATOCRIT 47.8 % (42.0-52.0); HEMOGLOBIN 15.4 g/dl (13.5-17.5); MEAN CORPUSCULAR HEMOGLOBIN 28.8 pg (27.0-33.0); MEAN CORPUSCULAR HGB CONC 32.2 g/dl (32.0-36.5); MEAN CORPUSCULAR VOLUME 89.3 fl (80.0-96.0); PLATELET COUNT, AUTOMATED 189 10^3/uL (150-450); RED BLOOD COUNT 5.35 10^6/uL (4.30-6.10); WHITE BLOOD COUNT 7.6 10^3/uL (4.0-10.0)
[2022-11-20 19:25] LABS: MAGNESIUM LEVEL 1.8 MG/DL (1.8-2.4)
[2022-11-20 19:27] LABS: ALBUMIN 3.7 G/DL (3.2-5.2); ALKALINE PHOSPHATASE 97 U/L (46-116); ALT/SGPT 22 U/L (7.0-40); AST/SGOT 18 U/L (<34); BILIRUBIN,TOTAL 0.6 MG/DL (0.3-1.2); BLOOD UREA NITROGEN 17 MG/DL (9-23); CALCIUM LEVEL 8.5 MG/DL (8.3-10.6); CARBON DIOXIDE LEVEL 26 MMOL/L (20-31); CHLORIDE LEVEL 106 MMOL/L (98-107); CHOLESTEROL LEVEL 136 MG/DL (<200); CHOLESTEROL RISK RATIO 3.86 (<5); CREATININE FOR GFR 0.93 MG/DL (0.70-1.30); GLOMERULAR FILTRATION RATE > 60.0 (>49); GLUCOSE, FASTING 101 MG/DL (74-106); HDL CHOLESTEROL 35.2 MG/DL (>40); LDL CHOLESTEROL 77.4 MG/DL (<100); NON-HDL-C 101 MG/DL; POTASSIUM SERUM 4.4 MMOL/L (3.5-5.1); SODIUM LEVEL 137 MMOL/L (136-145); TRIGLYCERIDES LEVEL 117 MG/DL (<150)
== END ==
LOC: M LAB 16:55
PROVIDERS: ATTEND Physician Assistant
DX: I42.9 Cardiomyopathy, unspecified (principal); I48.21 Permanent atrial fibrillation; E78.00 Pure hypercholesterolemia, unspecified

== ENCOUNTER → 2024-01-24 | Outpatient (CLI) | payer OTHER ==
[2024-01-24 13:28] LABS: BASO % 0.6 % (0.0-1.0); EOS # 0.1 10^3/uL (0.0-0.5); EOS % 0.7 % (0.0-3.0); HEMATOCRIT 48.2 % (42.0-52.0); HEMOGLOBIN 16.2 g/dl (13.5-17.5); LYMPH # 2.2 10^3/uL (1.5-5.0); LYMPH % 30.4 % (24.0-44.0); MEAN CORPUSCULAR HEMOGLOBIN 30.3 pg (27.0-33.0); MEAN CORPUSCULAR HGB CONC 33.6 g/dl (32.0-36.5); MEAN CORPUSCULAR VOLUME 90.1 fl (80.0-96.0); MONO # 0.6 10^3/uL (0.0-0.8); MONO % 8.1 % (2.0-8.0); NEUTROPHILS # 4.2 10^3/uL (1.5-8.5); NEUTROPHILS % 59.6 % (36.0-66.0); PLATELET COUNT, AUTOMATED 234 10^3/uL (150-450); RED BLOOD COUNT 5.35 10^6/uL (4.30-6.10); WHITE BLOOD COUNT 7.1 10^3/uL (4.0-10.0)
[2024-01-24 13:38] LABS: INR 1.15; PROTHROMBIN TIME 14.4 SECONDS (12.5-14.5)
[2024-01-24 13:52] LABS: HEMOGLOBIN A1c 5.5 % (4.0-6.0)
[2024-01-24 13:54] LABS: URIC ACID 7.8 MG/DL (3.7-9.2)
[2024-01-24 13:57] LABS: ALKALINE PHOSPHATASE 89 U/L (46-116); ALT/SGPT 29 U/L (7.0-40); AST/SGOT 19 U/L (<34); BLOOD UREA NITROGEN 16 MG/DL (9-23); CALCIUM LEVEL 9.2 MG/DL (8.3-10.6); CARBON DIOXIDE LEVEL 24 MMOL/L (20-31); CHLORIDE LEVEL 109 MMOL/L (98-107); CHOLESTEROL LEVEL 127 MG/DL (<200); CHOLESTEROL RISK RATIO 3.98 (<5); CREATININE FOR GFR 0.89 MG/DL (0.70-1.30); GLOMERULAR FILTRATION RATE > 60.0 (>49); GLUCOSE, FASTING 92 MG/DL (74-106); HDL CHOLESTEROL 31.9 MG/DL (>40); LDL CHOLESTEROL 64.3 MG/DL (<100); NON-HDL-C 95.1 MG/DL; POTASSIUM SERUM 4.3 MMOL/L (3.5-5.1); SODIUM LEVEL 139 MMOL/L (136-145); TOTAL PROTEIN 7.1 G/DL (5.7-8.2); TRIGLYCERIDES LEVEL 154 MG/DL (<150)
== END ==
LOC: M LAB 12:50
PROVIDERS: ATTEND Registered Nurse
DX: Z00.00 Encounter for general adult medical examination without abnormal findings (principal); M10.9 Gout, unspecified; I10 Essential (primary) hypertension; I48.20 Chronic atrial fibrillation, unspecified